=== PATIENT | female | born 1970 | race Caucasian/White ===

== ENCOUNTER 2018-11-05 10:42 | Outpatient (CLI) | payer OTHER ==
[~2018-11-05 10:42] MED LIST: VASOTEC10 MG PO
== END 2018-11-05 10:44 | disposition home or self-care (01) ==
LOC: SONOGRAMA 10:42
DX: E04.2 Nontoxic multinodular goiter (principal)

== ENCOUNTER 2021-08-17 12:59 | Outpatient (CLI) | payer OTHER | END 2021-08-17 13:01 | disposition home or self-care (01) | LOC: NUCLEAR 12:59 | PROVIDERS: ATTEND Internal Medicine Sports Medicine | DX: E05.80 Other thyrotoxicosis without thyrotoxic crisis or storm (principal); E05.90 Thyrotoxicosis, unspecified without thyrotoxic crisis or storm | CPT/HCPCS: 79005; A9517 ==